=== PATIENT | female | born 1990 | race Caucasian/White ===

== ENCOUNTER 2017-01-28 06:42 | Emergency (ER) | payer MEDICAID ==
[~2017-01-28] VITALS: Ht 165.1 cm; Wt 72.6 kg
[~2017-01-28 06:42] MED LIST: FISH OIL500 M1 PO
[2017-01-28] MEDS ORDERED: XANAX0.25 MG PO (07:05)
== END 2017-01-28 08:28 | disposition home or self-care (01) ==
LOC: ED 06:42
DX: F41.0 Panic disorder [episodic paroxysmal anxiety] (principal); F17.200 Nicotine dependence, unspecified, uncomplicated; Z88.0 Allergy status to penicillin
CPT/HCPCS: 99283

== ENCOUNTER 2017-03-19 17:09 | Emergency (ER) | payer OTHER ==
[~2017-03-19] VITALS: Ht 165.1 cm; Wt 74.8 kg
[~2017-03-19 17:09] MED LIST changes: +XANAX0.25 MG PO
== END 2017-03-19 20:41 | disposition home or self-care (01) ==
LOC: ED 17:09
DX: F41.9 Anxiety disorder, unspecified (principal); R10.30 Lower abdominal pain, unspecified; F17.200 Nicotine dependence, unspecified, uncomplicated; Z88.1 Allergy status to other antibiotic agents
CPT/HCPCS: 80053; 81001; 84703; 85025; 87077; 87088; 87186; 99283

== ENCOUNTER 2017-06-23 04:46 | Emergency (ER) | payer OTHER ==
[~2017-06-23] VITALS: Ht 165.1 cm; Wt 77.1 kg
[2017-06-23] MEDS ORDERED: XANAX0.5 MG PO (05:29)
[2017-06-23] MEDS ORDERED: ZOFRAN ODT4 MG PO (06:51)
== END 2017-06-23 07:17 | disposition home or self-care (01) ==
LOC: ED 04:46
DX: A08.4 Viral intestinal infection, unspecified (principal); F41.9 Anxiety disorder, unspecified; F17.200 Nicotine dependence, unspecified, uncomplicated; Z90.89 Acquired absence of other organs; Z88.1 Allergy status to other antibiotic agents
CPT/HCPCS: 80053; 84703; 85025; 96361; 96374; 99283; J2405; J7030

== ENCOUNTER 2017-08-13 16:21 | Emergency (ER) | payer OTHER ==
[~2017-08-13] VITALS: Ht 165.1 cm; Wt 77.1 kg
[~2017-08-13 16:21] MED LIST changes: +XANAX0.5 MG PO; +ZOFRAN ODT4 MG PO
[2017-08-13] MEDS ORDERED: IBUPROFEN600 MG PO (17:36)
== END 2017-08-13 17:55 | disposition home or self-care (01) ==
LOC: ED 16:21
DX: S90.31XA Contusion of right foot, initial encounter (principal); F17.200 Nicotine dependence, unspecified, uncomplicated; Z88.0 Allergy status to penicillin; W22.8XXA Striking against or struck by other objects, initial encounter
CPT/HCPCS: 73630; 99283

== ENCOUNTER 2018-04-02 07:17 | Emergency (ER) | payer BC, OTHER ==
[~2018-04-02] VITALS: Ht 165.1 cm; Wt 74.4 kg
[~2018-04-02 07:17] MED LIST changes: +IBUPROFEN600 MG PO
--- OUTSIDE RECORDS SUMMARY | 2018-04-02 07:22 | XMS ---
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 ETani VISIT COUNT (12 MO.) 3 [facility] TOTAL 3 NOTE: Visits indicate total known visits. ED/UCC VISIT TRACKING (12 MO.) 04/02/2018 07:17 [facility] [place] TYPE: Emergency COMPLAINT: - BLOOD IN STOOL 08/13/2017 16:22 [facility] [place] TYPE: Emergency COMPLAINT: - R FOOT PAIN/INJURY DIAGNOSES: - Allergy status to penicillin - Contusion of right foot, initial encounter - Striking against or struck by other objects, initial encounter - Nicotine dependence, unspecified, uncomplicated - Unspecified injury of right foot, initial encounter 06/23/2017 04:46 [facility] [place] TYPE: Emergency COMPLAINT: - VOMITING DIAGNOSES: - Viral intestinal infection, unspecified - Anxiety disorder, unspecified - Nicotine dependence, unspecified, uncomplicated - Acquired absence of other organs - Nausea with vomiting, unspecified - Allergy status to other antibiotic agents status INPATIENT VISIT TRACKING (12 MO.) No inpatient visits to display in this time frame [email or web address]
[2018-04-02] MEDS ORDERED: BACTRIM DS TAB1 EACH PO (09:14)
[2018-04-02] MEDS ORDERED: FLAGYL500 MG PO (09:17)
== END 2018-04-02 10:14 | disposition home or self-care (01) ==
LOC: ED 07:17
DX: K92.1 Melena (principal); R10.9 Unspecified abdominal pain; F41.9 Anxiety disorder, unspecified; F17.200 Nicotine dependence, unspecified, uncomplicated; Z88.0 Allergy status to penicillin
CPT/HCPCS: 80053; 81001; 83690; 84703; 85025; 87045; 87046; 87077; 87088; 87177; 87186; 87205; 87209; 96361; 96374; 96375; 96376; 99284; J1170; J2405; J7120

== ENCOUNTER 2018-12-28 03:36 | Inpatient (IN) | payer BC, OTHER ==
[~2018-12-28] VITALS: Ht 165.1 cm; Wt 88.0 kg
[~2018-12-28 03:36] MED LIST changes: +BACTRIM DS TAB1 EACH PO; +FLAGYL500 MG PO
[2018-12-28] MEDS ORDERED: VITAFOL-OB+DHA1 EACH PO (04:49)
--- NOTE | 2018-12-28 10:01 | PR ---
[facility] [address] [place], [place] [address] Signed Progress Notes IP Datetime Report Generated by CPN: 12/28/2018 10:01 PROGRESS NOTES: [id number] Impression: Normal progression of labor; Reassuring heart rate Procedures: Scalp Electrode Plan: Continue present management VITAL SIGNS: [id number] Vital Signs: Reviewed; Within Normal Limits EXAM: [id number] Dilatation: 4.0 Effacement: 90 Station: -2 Uterine Contractions: q2-3 minutes MEMBRANES: [id number] Comments: Pt seen and examined. Doing well. Comfortable w/ epidural. Reviewed cervical change, GBS prophylaxis, and discussed AROM. Pt declines AROM at this time. Will continue expectant management Fetus A: [id number] FHR Baseline: 140 Variability: Moderate 6-25bpm Accelerations: 15X15 Decelerations: None FHR Category: Category I Presentation: Vertex Comments on Fetus A: No evidence of metabolic acidosis Fetus B: [id number] Signing Physician: Wilfrid Green DO Copies: ~ *Electronically Signed* 12/28/18 1001 WILFRID GREEN DO PATIENT NAME: MILLIEALVARADO RAMOS PROGRESS NOTE DATE OF : [birth year] PHYSICIAN: WILFRID GREEN DO RPT #: [id number] REPORT IS CONFIDENTIAL AND NOT TO BE RELEASED WITHOUT AUTHORIZATION
--- NOTE | 2018-12-28 12:19 | PR ---
[facility] [address] [place], [place] [address] Signed Progress Notes IP Datetime Report Generated by CPNorma: 12/28/2018 12:19 PROGRESS NOTES: [id number] Impression: Normal progression of labor; Reassuring heart rate Procedures: Sterile Vag Exam Plan: Continue present management Other Informed Consents: AROM VITAL SIGNS: [id number] Vital Signs: Reviewed; Within Normal Limits EXAM: [id number] Dilatation: 5.0 Effacement: 90 Station: -1 Uterine Contractions: difficult to trace in current position MEMBRANES: [id number] Membrane Status: Ruptured Amniotic Fluid Color: Clear ROM Note: Reviewed AROM in detail and verbal consent obtained. Bloody show noted on examVertex confirmed to be well applied. AROM then performed easily for moderate amount of clear fluid. Mother and baby tolerated well Comments: Pt seen and examined. Doing well. AROM performed as above without difficulty. Comfortable w/ contractions. Will continue expectant management. Anticipate Fetus A: [id number] FHR Baseline: 145 Variability: Moderate 6-25bpm Accelerations: 15X15 Decelerations: None FHR Category: Category I Presentation: Vertex Other Presentation: ROT Comments on Fetus A: No evidence of metabolic acidosis Fetus B: [id number] Signing Physician: Wilfrid Green DO Copies: *Electronically Signed* 12/28/18 1219 WILFRID GREEN DO PATIENT NAME: ALVARADO PINTO PROGRESS NOTE DATE OF : [birth year] PHYSICIAN: WILFRID GREEN DO RPT #: [id number] REPORT IS CONFIDENTIAL AND NOT TO BE RELEASED WITHOUT AUTHORIZATION [facility] [address] [place], [place] [address] Signed ~ *Electronically Signed* 12/28/18 1219 WILFRID GREEN DO PATIENT NAME: ALVARADO PINTO PROGRESS NOTE DATE OF : [birth year] PHYSICIAN: WILFRID GREEN DO RPT #: [id number] REPORT IS CONFIDENTIAL AND NOT TO BE RELEASED WITHOUT AUTHORIZATION
--- NOTE | 2018-12-28 14:07 | PR ---
[facility] [address] [place], [place] [address] Signed Progress Notes IP Datetime Report Generated by CPNorma: 12/28/2018 14:07 PROGRESS NOTES: [id number] Impression: Normal progression of labor Procedures: Sterile Vag Exam Plan: Continue present management Informed Consent Obtain: Vaginal Delivery Other Informed Consents: Reviewed progress of labor VITAL SIGNS: [id number] Vital Signs: Reviewed; Within Normal Limits EXAM: [id number] Dilatation: 8.0 Effacement: 90 Station: 0 Uterine Contractions: q 3 minutes MEMBRANES: [id number] Membrane Status: Ruptured Amniotic Fluid Color: Clear ROM Note: Reviewed AROM in detail and verbal consent obtained. Bloody show noted on examVertex confirmed to be well applied. AROM then performed easily for moderate amount of clear fluid. Mother and baby tolerated well Comments: Pt seen and evaluted. Doing well. Comfortable w/ epidural. Progressing nicely. Reviewed anticipate course of labor. Discussed indications and risks of operative vaginal delivery. Discussed shoulder dystocia and maneuvers employed should that be encountered. Reviewed low risk for either operative delivery or dystocia, but that majority of these occur in low risk patients. All questions answered. Anticipate . continue expectant management Fetus A: [id number] FHR Baseline: 150 Variability: Moderate 6-25bpm Accelerations: 15X15 Decelerations: None FHR Category: Category I Presentation: Vertex Other Presentation: ROT Comments on Fetus A: No evidence of metabolic acidosis Fetus B: [id number] Signing Physician: Wilfrid Green DO *Electronically Signed* 12/28/18 1407 WILFRID GREEN DO PATIENT NAME: ALVARADO PINTO PROGRESS NOTE DATE OF : [birth year] PHYSICIAN: WILFRID GREEN DO RPT #: [id number] REPORT IS CONFIDENTIAL AND NOT TO BE RELEASED WITHOUT AUTHORIZATION [address] [place] [address] Signed Copies: ~ *Electronically Signed* 12/28/18 1407 GREENWILFRID DO PATIENT NAME: ALVARADO PINTO PROGRESS NOTE DATE OF : [birth year] PHYSICIAN: WILFRID GREEN DO RPT #: [id number] REPORT IS CONFIDENTIAL AND NOT TO BE RELEASED WITHOUT AUTHORIZATION
--- NOTE | 2018-12-28 17:57 | PR ---
[facility] [address] [place], [place] [address] Signed Progress Notes IP Datetime Report Generated by RACHEL: 12/28/2018 17:57 PROGRESS NOTES: [id number] Impression: Normal progression of labor; Reassuring heart rate Procedures: Sterile Vag Exam Plan: Continue present management; Anticipate Vaginal Delivery Informed Consent Obtain: Vaginal Delivery Other Informed Consents: Reviewed progress of labor VITAL SIGNS: B1390274 Vital Signs: Reviewed; Within Normal Limits EXAM: [id number] Dilatation: 9.5 Effacement: 100 Station: 0 Uterine Contractions: q 2-4 minutes MEMBRANES: L1201901 Membrane Status: Ruptured Amniotic Fluid Color: Clear ROM Note: Reviewed AROM in detail and verbal consent obtained. Bloody show noted on examVertex confirmed to be well applied. AROM then performed easily for moderate amount of clear fluid. Mother and baby tolerated well Comments: Pt seen and examined. Doing well. Small rim of cervix on the RIGHT. Pt resting on right side. SHARI position. Cervix felt to be reducible. Pt would like to labor down. Given reassuring FHT ok to labor down until complete and then will start active pushing. Reviewed 2nd stage of labor and all questions answered. Fetus A: [id number] FHR Baseline: 150 Variability: Moderate 6-25bpm Accelerations: 15X15 Decelerations: Variable FHR Category: Category II Presentation: Vertex Other Presentation: SHARI Comments on Fetus A: No evidence of metabolic acidosis Fetus B: [id number] Signing Physician: Wilfrid Green DO Copies: *Electronically Signed* 12/28/18 5646 WILFRID GREEN DO PATIENT NAME: ALVARADO PINTO PROGRESS NOTE DATE OF : [birth year] PHYSICIAN: WILFRID GREEN DO RPT #: [id number] REPORT IS CONFIDENTIAL AND NOT TO BE RELEASED WITHOUT AUTHORIZATION [address] [place] [address] Signed ~ *Electronically Signed* 12/28/18 [facility] [place] DO PATIENT NAME: ALVARADO PINTO PROGRESS NOTE DATE OF : [birth year] PHYSICIAN: WILFRID GREEN DO RPT #: [id number] REPORT IS CONFIDENTIAL AND NOT TO BE RELEASED WITHOUT AUTHORIZATION
--- NOTE | 2018-12-28 19:42 | PR ---
[facility] [address] [place], [place] [address] Signed Progress Notes IP Datetime Report Generated by CPN: 12/28/2018 19:42 PROGRESS NOTES: [id number] Impression: Normal progression of labor; Reassuring heart rate Procedures: Sterile Vag Exam Plan: Anticipate Vaginal Delivery Informed Consent Obtain: Vaginal Delivery Other Informed Consents: Reviewed progress of labor VITAL SIGNS: T2807251 Vital Signs: Reviewed; Within Normal Limits EXAM: [id number] Dilatation: 10.0 Effacement: 100 Station: 0 Uterine Contractions: q 2-3 MEMBRANES: H1255165 Membrane Status: Ruptured Amniotic Fluid Color: Clear ROM Note: Reviewed AROM in detail and verbal consent obtained. Bloody show noted on examVertex confirmed to be well applied. AROM then performed easily for moderate amount of clear fluid. Mother and baby tolerated well Comments: Pt seen and evaluated. Complete and feeling urge to push. Will start pushing. Reviewed anticipated course of 2nd stage of labor. All questions answered. Willl monitor variable decels Fetus A: [id number] FHR Baseline: 150 Variability: Minimal - Undetectable to <5bpm Accelerations: 15X15 Decelerations: Variable FHR Category: Category II Presentation: Vertex Other Presentation: SHARI Comments on Fetus A: No evidence of metabolic acidosis Fetus B: [id number] Signing Physician: Wilfrid Green DO Copies: *Electronically Signed* 12/28/181941 WILFRID GREEN DO PATIENT NAME: ALVARADO PINTO PROGRESS NOTE DATE OF : [birth year] PHYSICIAN: WILFRID GREEN DO RPT #: [id number] REPORT IS CONFIDENTIAL AND NOT TO BE RELEASED WITHOUT AUTHORIZATION [address] [place], [place] [address] Signed ~ *Electronically Signed* 12/28/18 194 WILFRID GREEN DO PATIENT NAME: ALVARADO PINTO PROGRESS NOTE DATE OF : [birth year] PHYSICIAN: WILFRID GREEN DO RPT #: [id number] REPORT IS CONFIDENTIAL AND NOT TO BE RELEASED WITHOUT AUTHORIZATION
--- NOTE | 2018-12-29 11:38 | PR ---
[facility] [address] [facility] [place], [place] [address] Signed PP Progress Notes Datetime Report Generated by CPN: 12/29/2018 11:38 SUBJECTIVE: [id number] Pain: Within normal limits Nausea/Vomiting: Denies Flatus: Yes Bowel Movement: No Vital Signs: Y7282416 Vital Signs: Reviewed; Within Normal Limits EXAM: [id number] Cardiovascular: Normal Respiratory: Normal Abdomen/Uterus: Normal Lochia: Normal Vulva/Perineum: Not Done Breasts: Normal CVA Tenderness: Normal Extremities: Normal Incision: Not Applicable Progress: Normal Exam Comments: Fundus firm U-2 nontender IMPRESSION/PLAN/PROCEDURES: [id number] Impression: Normal progression Plan: Continue present management Progress Notes: Pt seen and examined, doing well. Ambulating, voiding, and tolerating full diet. Pain and lochia minimal. well. No fevers/chills/other concerns. Planning d/c home tomorrow. Signing Physician: Wilfrid Green DO Copies: ~ *Electronically Signed* 12/29/18 1138 WILFRID GREEN DO PATIENT NAME: MILLIEALVARADO AREVALO PROGRESS NOTE DATE OF : [birth year] PHYSICIAN: WILFRID GREEN DO RPT #: [id number] REPORT IS CONFIDENTIAL AND NOT TO BE RELEASED WITHOUT AUTHORIZATION
--- NOTE | 2018-12-30 07:58 | PR ---
[facility] [address] [facility] [place], [place] [address] Signed PP Progress Notes Datetime Report Generated by CPN: 12/30/2018 07:57 SUBJECTIVE: [id number] Pain: Within normal limits Nausea/Vomiting: Denies Flatus: No Bowel Movement: No Vital Signs: S2513610 Vital Signs: Reviewed EXAM: [id number] Cardiovascular: Normal Respiratory: Normal Abdomen/Uterus: Normal Lochia: Normal Vulva/Perineum: Not Done Breasts: Not Done CVA Tenderness: Normal Extremities: Normal Incision: Not Applicable Progress: Normal Exam Comments: Fundus firm U-2 nontender IMPRESSION/PLAN/PROCEDURES: [id number] Impression: Normal progression Plan: Discharge Progress Notes: Pt seen and examined. Doing well. Ambulating, voiding, tolerating full diet. Pain and lochia minimal. well. Desires d/c home today. REviewd pp education in detail. Signing Physician: Wilfrid Green DO Copies: ~ *Electronically Signed* 12/30/18 0757 WILFRID GREEN DO PATIENT NAME: ALVARADO PINTO PROGRESS NOTE DATE OF : [birth year] PHYSICIAN: WILFRID GREEN DO RPT #: [id number] REPORT IS CONFIDENTIAL AND NOT TO BE RELEASED WITHOUT AUTHORIZATION
== END 2018-12-30 12:45 | disposition home or self-care (01) | DRG 807 ==
LOC: FBCO 03:36 → FBC 07:46
PROVIDERS: ADMIT Obstetrics & Gynecology
PROC: 10E0XZZ Delivery of Products of Conception, External Approach (ICD-10-PCS; principal; 2018-12-28)
PROC: 0KQM0ZZ Repair Perineum Muscle, Open Approach (ICD-10-PCS; 2018-12-28)
PROC: 0UQMXZZ Repair Vulva, External Approach (ICD-10-PCS; 2018-12-28)
PROC: 10907ZC Drainage of Amniotic Fluid, Therapeutic from Products of Conception, Via Natural or Artificial Opening (ICD-10-PCS; 2018-12-28)
PROC: 00HU33Z Insertion of Infusion Device into Spinal Canal, Percutaneous Approach (ICD-10-PCS; 2018-12-28)
PROC: 3E0R3BZ Introduction of Anesthetic Agent into Spinal Canal, Percutaneous Approach (ICD-10-PCS; 2018-12-28)
DX: O99.824 Streptococcus B carrier state complicating childbirth (principal); Z37.0 Single live birth; Z3A.40 40 weeks gestation of pregnancy; F17.210 Nicotine dependence, cigarettes, uncomplicated; O76 Abnormality in fetal heart rate and rhythm complicating labor and delivery; O99.334 Smoking (tobacco) complicating childbirth; O70.1 Second degree perineal laceration during delivery; O71.82 Other specified trauma to perineum and vulva; Z86.59 Personal history of other mental and behavioral disorders; Z88.0 Allergy status to penicillin
CPT/HCPCS: 01960; 36415; 59025; 85027; 99213; 99406; J0690; J2590; J2795; J7120

== ENCOUNTER 2019-03-09 10:50 | Emergency (ER) | payer OTHER, BC ==
[~2019-03-09] VITALS: Ht 165.1 cm; Wt 75.3 kg
[~2019-03-09 10:50] MED LIST changes: +VITAFOL-OB+DHA1 EACH PO
--- OUTSIDE RECORDS SUMMARY | 2019-03-09 10:52 | XMS ---
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 ETani VISIT COUNT (12 MO.) 2 [facility] TOTAL 2 NOTE: Visits indicate total known visits. ED/UCC VISIT TRACKING (12 MO.) 03/09/2019 10:50 [facility] TYPE: Emergency COMPLAINT: - RT WRIST LACERATION 04/02/2018 07:17 [facility] TYPE: Emergency COMPLAINT: - BLOOD IN STOOL DIAGNOSES: - Anxiety disorder, unspecified - Melena - Unspecified abdominal pain - Allergy status to penicillin - Nicotine dependence, unspecified, uncomplicated - Diarrhea, unspecified INPATIENT VISIT TRACKING (12 MO.) 12/28/2018 07:46 [facility] COMPLAINT: - LABOR DIAGNOSES: - Streptococcus B carrier state complicating childbirth - Second degree perineal laceration during delivery - Nicotine dependence, cigarettes, uncomplicated - Allergy status to penicillin - Streptococcus B carrier state complicating childbirth - Abnormality in heart rate and rhythm complicating labor and delivery - Other specified trauma to perineum and vulva - Single live - Second degree perineal laceration during delivery - Personal history of other mental and behavioral disorders - Smoking (tobacco) complicating childbirth - Smoking (tobacco) complicating childbirth - Allergy status to penicillin - Other specified trauma to perineum and vulva - Streptococcus B carrier state complicating - Single live - 40 weeks gestation of - Personal history of other mental and behavioral disorders - Abnormality in heart rate and rhythm complicating labor and delivery - Nicotine dependence, cigarettes, uncomplicated - 40 weeks gestation of [email or web address]
== END 2019-03-09 13:12 | disposition home or self-care (01) ==
LOC: ED 10:50
PROC: 0HQFXZZ Repair Right Hand Skin, External Approach (ICD-10-PCS; principal; 2019-03-09)
DX: S61.411A Laceration without foreign body of right hand, initial encounter (principal); F17.200 Nicotine dependence, unspecified, uncomplicated; Z88.0 Allergy status to penicillin; W45.8XXA Other foreign body or object entering through skin, initial encounter
CPT/HCPCS: 12001; 90471; 90715; 99282-25; 99406

== ENCOUNTER 2019-03-11 22:36 | Emergency (ER) | payer BC, OTHER ==
[~2019-03-11] VITALS: Ht 165.1 cm; Wt 75.3 kg
--- OUTSIDE RECORDS SUMMARY | 2019-03-11 22:38 | XMS ---
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 ETani VISIT COUNT (12 MO.) 3 [facility] TOTAL 3 NOTE: Visits indicate total known visits. ED/UCC VISIT TRACKING (12 MO.) 03/11/2019 22:36 [facility] TYPE: Emergency COMPLAINT: - ALCOHOL INTOXICATION 03/09/2019 10:50 [facility] TYPE: Emergency COMPLAINT: - RT WRIST LACERATION 04/02/2018 07:17 [facility] TYPE: Emergency COMPLAINT: - BLOOD IN STOOL DIAGNOSES: - Anxiety disorder, unspecified - Melena - Unspecified abdominal pain - Allergy status to penicillin - Nicotine dependence, unspecified, uncomplicated - Diarrhea, unspecified INPATIENT VISIT TRACKING (12 MO.) 12/28/2018 07:[address] [facility] OR TYPE: [facility] COMPLAINT: - LABOR DIAGNOSES: - Streptococcus B [...] cigarettes, uncomplicated - 40 weeks gestation of [email or web address]
== END 2019-03-12 02:45 | disposition home or self-care (01) ==
LOC: ED 22:36
DX: F10.129 Alcohol abuse with intoxication, unspecified (principal); F19.10 Other psychoactive substance abuse, uncomplicated; F17.200 Nicotine dependence, unspecified, uncomplicated; Z88.0 Allergy status to penicillin
CPT/HCPCS: 80053; 84703; 85025; 99284; G0480

== ENCOUNTER 2020-02-07 14:46 | Emergency (ER) | payer BC, OTHER ==
[~2020-02-07] VITALS: Ht 165.1 cm; Wt 77.1 kg
--- OUTSIDE RECORDS SUMMARY | 2020-02-07 14:48 | XMS ---
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 [place] has no Care Guidelines for this patient. Care History Medical/Surgical 03/13/2019 [facility] - [facility] IS UNABLE TO CONTACT PATIENT. LEFT VOICEMAIL. - IF PATIENT IS SEEN IN THE ED PLEASE PROVIDE [facility] CONTACT NUMBER\T\nbsp; [phone]. IF PATIENT IS INTERESTED IN IMMEDIATE SERVICES. [facility] CAN COME AND DO AN ASSESSMENT IN ED. E.D. VISIT COUNT (12 MO.) 4 [place] [facility]. TOTAL 4 NOTE: Visits indicate total known visits. ED/UCC VISIT TRACKING (12 MO.) 02/07/2020 14:[address] [facility] TYPE: Emergency COMPLAINT: - ABD PAIN 11/30/2019 08:52 [facility] [place] TYPE: Emergency COMPLAINT: - VAGINAL BLEEDING 03/11/2019 22:36 [facility] [place] TYPE: Emergency COMPLAINT: - ALCOHOL INTOXICATION DIAGNOSES: - Alcohol abuse with intoxication, unspecified - Other psychoactive substance abuse, uncomplicated - Nicotine dependence, unspecified, uncomplicated - Allergy status to penicillin 03/09/2019 10:50 [facility] TYPE: Emergency COMPLAINT: - RT WRIST LACERATION DIAGNOSES: - Other foreign body or object entering through skin, initial e - Allergy status to penicillin - Laceration without foreign body of right hand, initial encoun - Nicotine dependence, unspecified, uncomplicated INPATIENT VISIT TRACKING (12 MO.) No inpatient visits to display in this time frame [email or web address]
[2020-02-07] MEDS ORDERED: PRILOSEC OTC20 MG PO (17:17)
[2020-02-07] MEDS ORDERED: CARAFATE1 GM PO (17:17)
== END 2020-02-07 17:29 | disposition home or self-care (01) ==
LOC: ED 14:46
DX: R10.13 Epigastric pain (principal); R10.11 Right upper quadrant pain; Z87.891 Personal history of nicotine dependence; Z88.0 Allergy status to penicillin
CPT/HCPCS: 76705; 80053; 83690; 85025; 96374; 99284-25; J1885

== ENCOUNTER 2020-02-25 21:03 | Inpatient (IN) | payer BC, OTHER ==
[~2020-02-25] VITALS: Ht 165.1 cm; Wt 77.6 kg
[~2020-02-25 21:03] MED LIST changes: +CARAFATE1 GM PO; +PRILOSEC OTC20 MG PO
--- NOTE | 2020-02-27 10:59 | EKG ---
[facility] [address] [facility] [place], [place] [address] Signed Normal sinus rhythm Nonspecific T wave abnormality Abnormal ECG No previous ECGs available Confirmed by JAE BLAKELY MD ([id number]) on 02/27/2020 10:59:42 AM Electronically Signed By: JAE BLAKELY MD 02/27/20 1059 PATIENT NAME: ALVARADO PINTO Electrocardiogram DATE OF : 89 PHYSICIAN: JAE BLAKELY MD REPORT #: [id number] REPORT IS CONFIDENTIAL AND NOT TO BE RELEASED WITHOUT AUTHORIZATION
== END 2020-02-26 15:55 | disposition home or self-care (01) | DRG 208 ==
LOC: ED 21:03 → CCU 22:34
PROVIDERS: ADMIT Internal Medicine
PROC: 5A1935Z Respiratory Ventilation, Less than 24 Consecutive Hours (ICD-10-PCS; principal; 2020-02-25)
DX: J96.01 Acute respiratory failure with hypoxia (principal); E87.2 Acidosis; J96.02 Acute respiratory failure with hypercapnia; F10.129 Alcohol abuse with intoxication, unspecified; R40.2432 Glasgow coma scale score 3-8, at arrival to emergency department; Y90.7 Blood alcohol level of 200-239 mg/100 ml; Z87.891 Personal history of nicotine dependence; Z88.0 Allergy status to penicillin; Z78.1 Physical restraint status
CPT/HCPCS: 36415; 36600; 71045; 80053; 80176; 81001; 82803; 83735; 84443; 84703; 85025; 93005; 93010; 94002; 94003; C9113; G0480; J1650; J2405; J2704; J3010; J3411; J3475; J3480; J7030

== ENCOUNTER 2020-07-11 16:40 | Emergency (ER) | payer BC, OTHER ==
[~2020-07-11] VITALS: Ht 165.1 cm; Wt 77.9 kg
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
--- NOTE | 2020-07-12 22:22 | EKG ---
[facility] [address] [facility] [place] [address] Signed Normal sinus rhythm Normal ECG When compared with ECG of 25-FEB-2020 21:53, Nonspecific T wave abnormality, improved in Inferior leads Confirmed by JAE BLAKELY MD ([id number]) on 07/12/2020 10:21:49 PM Electronically Signed By: JAE BLAKELY MD 07/12/202221 PATIENT NAME: MILLIEALVARADO MAE Electrocardiogram DATE OF : 89 PHYSICIAN: JAE BLAKELY MD REPORT #: [id number] REPORT IS CONFIDENTIAL AND NOT TO BE RELEASED WITHOUT AUTHORIZATION
== END 2020-07-11 22:12 | disposition home or self-care (01) ==
LOC: ED 16:40
DX: R07.89 Other chest pain (principal); F17.200 Nicotine dependence, unspecified, uncomplicated; Z88.0 Allergy status to penicillin
CPT/HCPCS: 71046; 80053; 84484; 85025; 85379; 93005; 93010; 99285-25; C9803

== ENCOUNTER 2021-01-30 14:37 | Emergency (ER) | payer OTHER ==
[~2021-01-30] VITALS: Ht 165.1 cm; Wt 77.6 kg
--- NOTE | 2021-01-30 21:03 | EKG ---
[facility] [address] [facility] [place], [place] [address] Signed Normal sinus rhythm Normal ECG Confirmed by FRANSISCA GREGORIO DO ([id number]) on 01/30/2021 9:03:17 PM Electronically Signed By: FRANSISCA GREGORIO DO 01/30/212102 PATIENT NAME: ALVARADO PINTO Electrocardiogram DATE OF : 89 PHYSICIAN: FRANSISCA GREGORIO DO REPORT #: [id number] REPORT IS CONFIDENTIAL AND NOT TO BE RELEASED WITHOUT AUTHORIZATION
== END 2021-01-30 15:20 | disposition left against medical advice (07) ==
LOC: ED 14:37
DX: Z53.21 Procedure and treatment not carried out due to patient leaving prior to being seen by health care provider (principal)
CPT/HCPCS: 93005; 93010

== ENCOUNTER 2021-06-19 07:29 | Emergency (ER) | payer OTHER ==
[~2021-06-19] VITALS: Ht 165.1 cm; Wt 77.6 kg
[2021-06-19] MEDS ORDERED: ONDANSETRON ODT8 MG PO (07:50)
== END 2021-06-19 09:30 | disposition home or self-care (01) ==
LOC: ED 07:29
DX: K29.00 Acute gastritis without bleeding (principal); F17.200 Nicotine dependence, unspecified, uncomplicated; Z88.0 Allergy status to penicillin
CPT/HCPCS: 96374; 99283-25; J2405; J7030